=== PATIENT | male | born 1940 | race Caucasian/White ===

== ENCOUNTER 2019-12-09 11:47 | Inpatient (IN) | payer MEDICARE ==
[~2019-12-09] VITALS: Ht 172.7 cm; Wt 51.3 kg
[2019-12-09] MEDS ORDERED: DILTIAZEM 5 MG/ML, 5ML ONE (12:24)
[2019-12-09] MEDS ORDERED: DILTIAZEM 5 MG/ML, 5ML IV ONE (12:30)
[2019-12-09] MEDS ORDERED: SODIUM CHLORIDE FLUSH 10ML SYR IVF ONE (12:30)
--- NOTE | 2019-12-09 12:33 | NUR ---
Pt states worsening SOB since Monday in addition to bilateral swelling in lower ext. SpO2 adequate on room air, mild SOB, denies CP, fever, sore throat, muscle aches. Family at bedside.
--- NOTE | 2019-12-09 12:35 | NUR ---
PT MEDICATED PER MAR. HR HAS DECREASED TO 105. WILL CONTINUE TO MONITOR
[2019-12-09 12:47] LABS: BASOPHILS # (AUTO) 0.02 x10^3/uL (0-0.1); BASOPHILS % (AUTO) 0 % (0-1); EOSINOPHILS # (AUTO) 0.03 x10^3/uL (0-0.4); EOSINOPHILS % (AUTO) 0 % (1-7); LYMPHOCYTES # (AUTO) 1.47 x10^3/uL (1-3.4); LYMPHOCYTES % (AUTO) 14 % (22-44); MD NO; MEAN CORPUSCULAR HEMOGLOBIN 35.4 pg (27.5-34.5); MEAN CORPUSCULAR VOLUME 107.3 fL (81-97); MEAN PLATELET VOLUME 7.5 fL (7.4-10.4); MONOCYTES # (AUTO) 1.16 x10^3/uL (0.2-0.8); MONOCYTES % (AUTO) 11 % (2-9); NEUTROPHILS # (AUTO) 8.16 x10^3/uL (1.8-6.8); NEUTROPHILS % (AUTO) 75 % (42-75); PLATELET COUNT 310 x10^3/uL (130-400); RED BLOOD COUNT 3.42 x10^6/uL (4.38-5.82); RED CELL DISTRIBUTION WIDTH 14.3 % (9.4-14.8)
[2019-12-09 12:53] LABS: CHLORIDE 102 mmol/L (98-107)
--- NOTE | 2019-12-09 12:54 | NUR ---
REPORT RECEIVED FROM BROOKS JIMÉNEZ.
[2019-12-09 13:03] LABS: ALANINE AMINOTRANSFERASE 77 U/L (12-78); ALKALINE PHOSPHATASE 206 U/L (45-117); ANION GAP 6 mmol/L (5-15); BILIRUBIN,TOTAL 0.5 mg/dL (0.2-1.0); CALCIUM 8.4 mg/dL (8.5-10.1); CREATININE 0.68 mg/dL (0.7-1.3); TOTAL PROTEIN 6.8 g/dL (6.4-8.2); TROPONIN I 0.018 ng/mL (0.000-0.045)
--- NOTE | 2019-12-09 13:21 | NUR ---
lab at bedside for .
[2019-12-09] MEDS ORDERED: CEFTRIAXONE PMX 1GM/50ML 50 ML ONE (13:26)
[2019-12-09] MEDS ORDERED: FUROSEMIDE 40 MG/4 ML ONE (13:26)
[2019-12-09] MEDS ORDERED: FUROSEMIDE 40 MG/4 ML IV ONE (13:30)
[2019-12-09] MEDS ORDERED: CEFTRIAXONE PMX 1GM/50ML 50 ML IVPB ONE (13:30)
[2019-12-09] MEDS ORDERED: AZITHROMYCIN 500 MG in SODIUM CHLORIDE 0.9% 250 ML IVPB ONE (13:30)
--- NOTE | 2019-12-09 13:38 | NUR ---
PT MEDICATED PER EMAR. ABX INFUSING AT THIS TIME AFTER BC X 2. PT TOLERATED WELL.
[2019-12-09] MEDS ORDERED: HEPARIN 5,000 UNITS/ML, 1ML IV ONE (14:00)
[2019-12-09] MEDS ORDERED: SODIUM CHLORIDE FLUSH 10ML SYR IVF PRN (14:00)
--- NOTE | 2019-12-09 14:35 | NUR ---
report given to suki espinosa. all questions answered.
[2019-12-09] MEDS ORDERED: ONDANSETRON 2MG/ML, 2ML IVPush PRN (15:00)
[2019-12-09] MEDS ORDERED: HYDROcodone/APAP 5/325 TABLET PO PRN (15:00)
[2019-12-09] MEDS ORDERED: DOCUSATE 100 MG CAPSULE PO PRN (15:00)
[2019-12-09] MEDS ORDERED: morphine SULFATE 10 MG/ML, 1ML IVPush PRN (15:00)
[2019-12-09] MEDS ORDERED: ACETAMINOPHEN 325 MG TABLET PO PRN (15:00)
[2019-12-09] MEDS ORDERED: TEMAZEPAM 15 MG CAPSULE PO PRN (15:00)
[2019-12-09] MEDS ORDERED: LABETALOL 5MG/ML, 20ML IVPush PRN (15:00)
[2019-12-09 15:05] VITALS: BP 150/93
[2019-12-09] MEDS: HEPARIN 25,000 UNITS/250ML PMX 250 ML IV PRN (15:32)
[2019-12-09 15:41] LABS: FREE T4 (FREE THYROXINE) 1.05 ng/dL (0.76-1.46); TROPONIN I 0.026 ng/mL (0.000-0.045)
[2019-12-09 15:48] VITALS: BP 150/93
[2019-12-09] MEDS ORDERED: DILTIAZEM 30 MG TABLET PO SCH (16:00)
[2019-12-09] MEDS ORDERED: ENALAPRILAT 1.25 MG/ML, 1ML IVPush PRN (16:00)
[2019-12-09] MEDS ORDERED: DILTIAZEM 60 MG TABLET PO ONE (17:45)
[2019-12-09] MEDS: FUROSEMIDE 40 MG/4 ML IV SCH (18:20)
[2019-12-09 22:04] VITALS: BP 132/75
[2019-12-09] MEDS: DILTIAZEM 60 MG TABLET PO SCH (22:11)
[2019-12-09] MEDS: FAMOTIDINE 20 MG TABLET PO SCH (22:11)
[2019-12-09 22:40] LABS: TROPONIN I 0.019 ng/mL (0.000-0.045)
[2019-12-09] MEDS: HEPARIN 5,000 UNITS/ML, 1ML IV PRN (23:35)
[2019-12-09 23:50] LABS: MICROSCOPIC NOT IND
[2019-12-10 01:35] VITALS: BP 115/81
[2019-12-10 04:09] VITALS: BP 123/78
[2019-12-10] MEDS: DILTIAZEM 60 MG TABLET PO SCH ×4 (04:12→21:30)
[2019-12-10 05:45] LABS: BASOPHILS # (AUTO) 0.04 x10^3/uL (0-0.1); BASOPHILS % (AUTO) 1 % (0-1); EOSINOPHILS # (AUTO) 0.05 x10^3/uL (0-0.4); EOSINOPHILS % (AUTO) 1 % (1-7); LYMPHOCYTES % (AUTO) 13 % (22-44); MD NO; MEAN CORPUSCULAR HEMOGLOBIN 35.2 pg (27.5-34.5); MEAN CORPUSCULAR VOLUME 106.7 fL (81-97); MONOCYTES # (AUTO) 0.95 x10^3/uL (0.2-0.8); MONOCYTES % (AUTO) 12 % (2-9); NEUTROPHILS % (AUTO) 74 % (42-75); PLATELET COUNT 269 x10^3/uL (130-400); RED BLOOD COUNT 3.23 x10^6/uL (4.38-5.82); RED CELL DISTRIBUTION WIDTH 13.8 % (9.4-14.8)
[2019-12-10 05:54] LABS: CHLORIDE 103 mmol/L (98-107)
[2019-12-10 06:04] LABS: ANION GAP 7 mmol/L (5-15); CALCIUM 8.3 mg/dL (8.5-10.1); CREATININE 0.63 mg/dL (0.7-1.3)
[2019-12-10] MEDS: HEPARIN 5,000 UNITS/ML, 1ML IV PRN ×2 (06:23→19:43)
[2019-12-10] MEDS ORDERED: LABETALOL 5MG/ML, 20ML IVPush PRN (08:00)
[2019-12-10 08:19] VITALS: BP 117/74
[2019-12-10] MEDS: FAMOTIDINE 20 MG TABLET PO SCH ×2 (08:33→21:30)
[2019-12-10] MEDS: FUROSEMIDE 40 MG/4 ML IV SCH ×2 (08:33→17:18)
[2019-12-10 15:47] VITALS: BP 107/72
[2019-12-10] MEDS ORDERED: DIGOXIN 0.25 MG/ML, 2ML IVPush ONE ×2 (17:00→21:00)
[2019-12-10] MEDS: HEPARIN 25,000 UNITS/250ML PMX 250 ML IV PRN (17:48)
[2019-12-10 19:48] VITALS: BP 131/72
[2019-12-11 01:00] VITALS: BP 110/62
[2019-12-11 02:03] LABS: BASOPHILS # (AUTO) 0.01 x10^3/uL (0-0.1); BASOPHILS % (AUTO) 0 % (0-1); EOSINOPHILS # (AUTO) 0.05 x10^3/uL (0-0.4); EOSINOPHILS % (AUTO) 1 % (1-7); LYMPHOCYTES # (AUTO) 1.05 x10^3/uL (1-3.4); LYMPHOCYTES % (AUTO) 14 % (22-44); MD NO; MEAN CORPUSCULAR HEMOGLOBIN 34.6 pg (27.5-34.5); MEAN CORPUSCULAR HGB CONC 32.5 g/dL (33.2-36.2); MEAN CORPUSCULAR VOLUME 106.6 fL (81-97); MEAN PLATELET VOLUME 7.8 fL (7.4-10.4); MONOCYTES # (AUTO) 0.73 x10^3/uL (0.2-0.8); MONOCYTES % (AUTO) 10 % (2-9); NEUTROPHILS # (AUTO) 5.44 x10^3/uL (1.8-6.8); NEUTROPHILS % (AUTO) 75 % (42-75); PLATELET COUNT 271 x10^3/uL (130-400); RED BLOOD COUNT 3.23 x10^6/uL (4.38-5.82); RED CELL DISTRIBUTION WIDTH 13.9 % (9.4-14.8)
[2019-12-11 02:11] LABS: ANION GAP 6 mmol/L (5-15); CHLORIDE 105 mmol/L (98-107); CREATININE 0.57 mg/dL (0.7-1.3)
[2019-12-11] MEDS: DILTIAZEM 60 MG TABLET PO SCH ×2 (04:27→08:58)
[2019-12-11] MEDS ORDERED: POTASSIUM CHLORIDE 20 MEQ TAB.ER.PRT PO ONE (05:00)
[2019-12-11] MEDS ORDERED: MAGNESIUM SULFATE/D5W 100 ML IV ONE (05:00)
[2019-12-11 06:49] VITALS: BP 115/73
[2019-12-11] MEDS: FUROSEMIDE 40 MG/4 ML IV SCH ×2 (07:44→16:29)
[2019-12-11] MEDS: FAMOTIDINE 20 MG TABLET PO SCH ×2 (07:44→21:49)
[2019-12-11 13:08] VITALS: BP 99/53
[2019-12-11] MEDS: METOPROLOL TARTRATE 50 MG TAB PO SCH (16:59)
[2019-12-11] MEDS: POTASSIUM CHLORIDE 20 MEQ TAB.ER.PRT PO SCH (16:59)
[2019-12-11 17:01] VITALS: BP 126/73
[2019-12-11] MEDS: HEPARIN 25,000 UNITS/250ML PMX 250 ML IV PRN (17:41)
[2019-12-11 21:59] VITALS: BP 118/68
[2019-12-12 03:00] VITALS: BP 115/72
[2019-12-12 05:01] LABS: BASOPHILS % (AUTO) 0 % (0-1); EOSINOPHILS % (AUTO) 1 % (1-7); LYMPHOCYTES % (AUTO) 18 % (22-44); MD NO; MEAN CORPUSCULAR HGB CONC 32.8 g/dL (33.2-36.2); MEAN CORPUSCULAR VOLUME 106.8 fL (81-97); MEAN PLATELET VOLUME 7.8 fL (7.4-10.4); MONOCYTES # (AUTO) 1.13 x10^3/uL (0.2-0.8); MONOCYTES % (AUTO) 16 % (2-9); NEUTROPHILS # (AUTO) 4.65 x10^3/uL (1.8-6.8); NEUTROPHILS % (AUTO) 65 % (42-75); PLATELET COUNT 277 x10^3/uL (130-400); RED BLOOD COUNT 3.32 x10^6/uL (4.38-5.82); RED CELL DISTRIBUTION WIDTH 14.3 % (9.4-14.8)
[2019-12-12 05:12] LABS: ANION GAP 4 mmol/L (5-15); CALCIUM 8.5 mg/dL (8.5-10.1); CHLORIDE 108 mmol/L (98-107); CREATININE 0.72 mg/dL (0.7-1.3)
[2019-12-12] MEDS: METOPROLOL TARTRATE 50 MG TAB PO SCH ×2 (06:15→17:33)
[2019-12-12] MEDS: FAMOTIDINE 20 MG TABLET PO SCH (08:05)
[2019-12-12] MEDS: FUROSEMIDE 40 MG/4 ML IV SCH ×2 (08:05→17:33)
[2019-12-12] MEDS: POTASSIUM CHLORIDE 20 MEQ TAB.ER.PRT PO SCH ×2 (08:05→17:33)
[2019-12-12 08:08] VITALS: BP 122/70
[2019-12-12] MEDS: SODIUM CHLORIDE 0.9% 1,000 ML IV SCH ×3 (11:55→22:31)
[2019-12-12 12:17] VITALS: BP 125/82
[2019-12-12] MEDS ORDERED: BIVALIRUDIN 250 MG ONE ×2 (13:44→14:31)
[2019-12-12] MEDS ORDERED: TICAGRELOR 90 MG TABLET ONE (13:44)
[2019-12-12] MEDS ORDERED: VERAPAMIL 2.5 MG/ML, 2ML ONE (13:44)
[2019-12-12] MEDS ORDERED: FENTANYL PF 100 MCG/2ML ONE (13:44)
[2019-12-12] MEDS ORDERED: LIDOCAINE-MPF 1%, 5ML ONE (13:44)
[2019-12-12] MEDS ORDERED: HEPARIN 1,000 UNITS/ML, 10ML ONE (13:45)
[2019-12-12] MEDS ORDERED: MIDAZOLAM 1 MG/ML, 2ML ONE (13:45)
[2019-12-12 20:13] VITALS: BP 127/86
[2019-12-12] MEDS ORDERED: TICAGRELOR 90 MG TABLET PO SCH (21:00)
[2019-12-13 01:42] VITALS: BP 127/74
[2019-12-13 05:29] LABS: BASOPHILS # (AUTO) 0.01 x10^3/uL (0-0.1); BASOPHILS % (AUTO) 0 % (0-1); EOSINOPHILS # (AUTO) 0.04 x10^3/uL (0-0.4); EOSINOPHILS % (AUTO) 1 % (1-7); LYMPHOCYTES # (AUTO) 1.16 x10^3/uL (1-3.4); LYMPHOCYTES % (AUTO) 15 % (22-44); MD NO; MEAN CORPUSCULAR HEMOGLOBIN 34.9 pg (27.5-34.5); MEAN CORPUSCULAR HGB CONC 32.7 g/dL (33.2-36.2); MEAN CORPUSCULAR VOLUME 106.5 fL (81-97); MEAN PLATELET VOLUME 7.8 fL (7.4-10.4); MONOCYTES # (AUTO) 1.25 x10^3/uL (0.2-0.8); MONOCYTES % (AUTO) 16 % (2-9); NEUTROPHILS # (AUTO) 5.19 x10^3/uL (1.8-6.8); NEUTROPHILS % (AUTO) 68 % (42-75); PLATELET COUNT 333 x10^3/uL (130-400); RED BLOOD COUNT 3.69 x10^6/uL (4.38-5.82); RED CELL DISTRIBUTION WIDTH 13.6 % (9.4-14.8)
[2019-12-13 05:34] LABS: CHLORIDE 106 mmol/L (98-107)
[2019-12-13 05:42] LABS: ANION GAP 8 mmol/L (5-15); CALCIUM 8.7 mg/dL (8.5-10.1); CREATININE 0.72 mg/dL (0.7-1.3)
[2019-12-13] MEDS: SODIUM CHLORIDE 0.9% 1,000 ML IV SCH ×2 (06:09→06:10)
[2019-12-13] MEDS: METOPROLOL TARTRATE 50 MG TAB PO SCH (06:44)
[2019-12-13 08:08] VITALS: BP 119/80
[2019-12-13] MEDS: POTASSIUM CHLORIDE 20 MEQ TAB.ER.PRT PO SCH (08:11)
[2019-12-13] MEDS ORDERED: ASPIRIN 81 MG TABLET EC PO SCH (09:00)
[2019-12-13] MEDS ORDERED: FAMOTIDINE 20 MG TABLET PO SCH (09:00)
[2019-12-13 09:16] VITALS: BP 114/77
[2019-12-13] MEDS ORDERED: SPIRONOLACTONE 25 MG TABLET PO SCH (09:30)
[2019-12-13] MEDS ORDERED: LISINOPRIL 5 MG TABLET PO SCH (09:30)
[2019-12-13] MEDS ORDERED: CLOPIDOGREL 75 MG TABLET PO ONE (10:00)
[2019-12-13] MEDS ORDERED: ATOR-2 PO (11:12)
[2019-12-13] MEDS ORDERED: LISI5TAB7 PO (11:12)
[2019-12-13] MEDS ORDERED: CLOP75TA PO (11:12)
[2019-12-13] MEDS ORDERED: SPIR25TA PO (11:12)
[2019-12-13] MEDS ORDERED: CARV25TA12 PO (11:12)
[2019-12-13] MEDS ORDERED: RIVA20TA PO (11:12)
[2019-12-13 13:30] VITALS: BP 112/73
[2019-12-13] MEDS ORDERED: RIVAROXABAN 20 MG TABLET PO SCH (17:00)
[2019-12-13] MEDS ORDERED: CARVEDILOL 25 MG TABLET PO SCH (18:00)
[2019-12-13] MEDS ORDERED: ATORVASTATIN 80 MG TABLET PO SCH (21:00)
[2019-12-14] MEDS ORDERED: CLOPIDOGREL 75 MG TABLET PO SCH (09:00)
== END 2019-12-13 16:58 | disposition home or self-care (01) | DRG 246 ==
LOC: ED 13:40 → EDIP 13:41 → ED 13:58 → 5SO 14:58
PROVIDERS: ADMIT Internal Medicine; ATTEND Internal Medicine
PROC: 027034Z Dilation of Coronary Artery, One Artery with Drug-eluting Intraluminal Device, Percutaneous Approach (ICD-10-PCS; principal; 2019-12-12)
PROC: 4A023N7 Measurement of Cardiac Sampling and Pressure, Left Heart, Percutaneous Approach (ICD-10-PCS; 2019-12-12)
PROC: B2111ZZ Fluoroscopy of Multiple Coronary Arteries using Low Osmolar Contrast (ICD-10-PCS; 2019-12-12)
PROC: B2151ZZ Fluoroscopy of Left Heart using Low Osmolar Contrast (ICD-10-PCS; 2019-12-12)
DX: I48.91 Unspecified atrial fibrillation (principal); I50.31 Acute diastolic (congestive) heart failure; E87.1 Hypo-osmolality and hyponatremia; J98.11 Atelectasis; K92.2 Gastrointestinal hemorrhage, unspecified; D68.69 Other thrombophilia; I42.9 Cardiomyopathy, unspecified; D53.9 Nutritional anemia, unspecified; E88.09 Other disorders of plasma-protein metabolism, not elsewhere classified; B35.1 Tinea unguium; M79.89 Other specified soft tissue disorders; I34.0 Nonrheumatic mitral (valve) insufficiency; I27.20 Pulmonary hypertension, unspecified; E87.6 Hypokalemia; I42.8 Other cardiomyopathies; I25.10 Atherosclerotic heart disease of native coronary artery without angina pectoris; F17.200 Nicotine dependence, unspecified, uncomplicated; I11.0 Hypertensive heart disease with heart failure; Z66 Do not resuscitate; Z79.899 Other long term (current) drug therapy
CPT/HCPCS: 36415; 71045; 80048; 80053; 81003; 82607; 83036; 83605; 83735; 83880; 84100; 84145; 84439; 84443; 84484; 85025; 85520; 87040; 93005; 93306; 93458; 96374; 99156; 99157; C1769; C1894; C9600; G0378; J0583; J0696; J1644; J1940; J2250; J3010; C1725; C1874; C1887; J1160; J7030; Q9967

== ENCOUNTER → 2020-02-18 | Outpatient (CLI) | payer MEDICARE ==
[~2020-02-18] MED LIST: ATOR-2 PO; CARV25TA12 PO; CLOP75TA PO; LISI5TAB7 PO; RIVA20TA PO; SPIR25TA PO
== END | disposition home or self-care (01) ==
LOC: CFH 14:59 → EDSTATUS 15:15
PROVIDERS: ATTEND Internal Medicine Cardiovascular Disease
DX: I08.3 Combined rheumatic disorders of mitral, aortic and tricuspid valves (principal); I42.9 Cardiomyopathy, unspecified; I48.91 Unspecified atrial fibrillation
CPT/HCPCS: 93306